=== PATIENT | female | born 1975 | race Caucasian/White ===

== ENCOUNTER → 2018-09-13 | Outpatient (CLI) | payer BC, OTHER | LOC: HYPER 06:49 | DX: L97.812 Non-pressure chronic ulcer of other part of right lower leg with fat layer exposed (principal); L02.415 Cutaneous abscess of right lower limb; R60.0 Localized edema ==

== ENCOUNTER → 2018-09-24 | Outpatient (CLI) | payer BC, OTHER | LOC: HYPER 06:15 | DX: L97.812 Non-pressure chronic ulcer of other part of right lower leg with fat layer exposed (principal); L02.415 Cutaneous abscess of right lower limb; R60.0 Localized edema ==

== ENCOUNTER → 2018-10-04 | Outpatient (CLI) | payer BC, OTHER | LOC: HYPER 06:16 | DX: L97.812 Non-pressure chronic ulcer of other part of right lower leg with fat layer exposed (principal); L02.415 Cutaneous abscess of right lower limb; R60.0 Localized edema ==

== ENCOUNTER → 2018-10-18 | Outpatient (CLI) | payer BC, OTHER | LOC: HYPER 06:34 | DX: L97.812 Non-pressure chronic ulcer of other part of right lower leg with fat layer exposed (principal); L02.415 Cutaneous abscess of right lower limb; R60.0 Localized edema ==

== ENCOUNTER → 2018-11-08 | Outpatient (CLI) | payer BC, OTHER | LOC: HYPER 06:54 | DX: L97.812 Non-pressure chronic ulcer of other part of right lower leg with fat layer exposed (principal); L02.415 Cutaneous abscess of right lower limb; R60.0 Localized edema ==